=== PATIENT | female | born 2005 | race Caucasian/White ===

== ENCOUNTER 2024-04-07 18:01 | Emergency (ER) | payer BC, SELFPAY ==
[2024-04-07 18:10] VITALS: BP 119/67; PULSE 67; RESP 16; TEMP 36.8; O2SAT 98; BMI 25.6
[2024-04-07 18:59] LABS: PCR FLU A Negative PCR FLU A (Negative); PCR FLU B Negative PCR FLU B (Negative); PCR RSV Negative PCR RSV (Negative); SARS PCR* Negative SARS-CoV-2 (Negative)
[2024-04-07 19:33] LABS: Appearance Urine Clear (Clear); Bilirubin Urine Negative (Negative); Blood Urine Negative (Negative); Color Urine Yellow (Yellow); Glucose Urine Negative (Negative); Ketones Urine Negative (Negative); Leukocyte Esterase Urine Negative (Negative); Nitrite Urine Negative (Negative); Protein Urine Negative (Negative); Specific Gravity Urine 1.015 (1.000-1.030); Urobilinogen Urine 0.2 (0.2-1.0); pH Urine 6.5 (5.0-8.5)
--- NOTE | 2024-04-07 19:34 | ED.GENADULT ---
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 Her RSV COVID flu are negative. She has been having some body aches and fatigue but no chest pain shortness a breath cough sputum production dysuria abdominal pain rashes or stiff neck. She has otherwise been in her usual state of health. Related Data Home Medications ?Medication ?Instructions ?Recorded ?Confirmed norgestimate 0.25 mg-ethinyl 1 tab PO DAILY 04/07/24 04/07/24 estradiol 35 mcg tablet (Estarylla) Allergies Allergy/AdvReac Type Severity Reaction Status Date / Time No Known Drug Allergies Allergy Verified 04/07/24 18:09 Review of Systems Status of ROS: Reports: 10 or more systems reviewed and unremarkable except as noted in History and below Exam Narrative: Exam Narrative: EXAM GENERAL: Patient appears comfortable and well. EYES: No scleral icterus. ENT: Tympanic membranes and oropharynx normal. THYROID: no thyroid nodules or thyromegaly. LYMPH: No supraclavicular or cervical lymphadenopathy. SKIN: Visible skin seen during exam normal or with benign process only. EXT: No dependent lower extremity pedal edema. HEART: Regular rate and rhythm with no murmurs, rubs, or gallops. LUNGS: Clear to auscultation bilaterally with no crackles or wheezes. ABD: Soft, non tender, non distended. PSYCH: Good eye contact, speech is not pressured. Const: Vital Signs, click to edit/add: Vital Signs - 24 hr 04/07/24 18:10 Temperature 98.2 F Pulse Rate [Pulse Oximeter] 67 Respiratory Rate 16 Blood Pressure [Ri ght Upper Arm] 119/67 Pulse Oximetry 98 Oxygen Delivery Me thod Room Air Course Course ED Course: Patient seen and examined. Vital Signs Vital signs: Initial Vital Signs Temperature 98.2 F 04/07/24 18:10 Temperature Source Temporal Artery Scan 04/07/24 18:10 Pulse Rate 67 04/07/24 18:10 Respiratory Rate 16 04/07/24 18:10 Blood Pressure 119/67 04/07/24 18:10 Blood Pressure Mean 84 04/07/24 18:10 Blood Pressure Position Sitting 04/07/24 18:10 Pulse Oximetry 98 04/07/24 18:10 Oxygen Delivery Method Room Air 04/07/24 18:10 Vital Signs Temperature 98.2 F 04/07/24 18:10 Pulse Rate 67 04/07/24 18:10 Respiratory Rate 16 04/07/24 18:10 Blood Pressure 119/67 04/07/24 18:10 Pulse Oximetry 98 04/07/24 18:10 Oxygen Delivery Method Room Air 04/07/24 18:10 Temperature 98.2 F 04/07/24 18:10 Pulse Rate 67 04/07/24 18:10 Respiratory Rate 16 04/07/24 18:10 Blood Pressure 119/67 04/07/24 18:10 Pulse Oximetry 98 04/07/24 18:10 Oxygen Delivery Method Room Air 04/07/24 18:10 Medical Decision Making MDM Narrative Medical decision making narrative: Patient presents with body aches and fatigue. She has a normal exam and normal vital signs. She had negative COVID flu and RSV. I do not believe further workup is evaluated. I do think she is safe to discharge home with primary care follow-up with the diagnosis of viral syndrome. Lab Data Labs: Lab Results 04/07/24 Range/Units 18:17 SARS-CoV-2 (PCR) Negative SARS-CoV-2 (Negative) Influenza Type A (PCR) Negative PCR FLU A (Negative) Influenza Type B (PCR) Negative PCR FLU B (Negative) RSV (PCR) Negative PCR RSV (Negative) Discharge Plan Discharge Clinical Impression: Acute viral syndrome Patient Disposition: Home, Self-Care Condition: Stable Instructions: Viral Syndrome (ED) Additional Instructions: Tylenol 650 mg every 8 hours as needed Motrin 400 mg every 8 hours as needed Rest Fluids Follow-up with [facility] as needed. Activity Level: No Restrictions Discharge Diet: Regular Prescriptions: No Action norgestimate-ethinyl estradiol [Estarylla] 0.25-35 mg-mcg tablet 1 tab PO DAILY Stand Alone Forms: [employer] Info Instructions
--- OUTSIDE RECORDS SUMMARY | 2024-04-07 20:01 | XMS_ITS | Encounter Summary ---
Author Organization [facility] Address [address] [place] [address] Care Team Providers Care Nutrient Management Specialist Name Role Phone Pediatrics, [facility] Primary Care Provider [phone] [phone] Encounter Details Date Type Department Care Team (Late st Contact Info) Description 07/27/2021 Orders Only [facility] Endocrinology [place] [address] Kevin Posadas [address] [address] Rosalina Winslow NP Social History Tobacco Use Types Packs/Day Years Used Date Smoking Tobacco: Never Smokeless Tobacco: Never Comments No Sex and Gender Information Value Date Recorded Sex Assigned at Not on file Legal Sex Female 11:30 AM EDT Gender Identity Not on file Sexual Orientation Not on file documented as of this encounter Plan of Treatment Not on file documented as of this encounter Visit Diagnoses Not on filedocumented in this encounter Care Teams Nutrient Management Specialist Relationship Specialty Start Date End Date Pediatrics, [address] [place] [address] PCP - General Pediatrics 02/17/17 documented as of this encounter
--- OUTSIDE RECORDS SUMMARY | 2024-04-07 20:01 | XMS_ITS | Referral Summary ---
Author Organization [facility] Address [address] [place] [address] Care Team Providers Care Slackline Operator Name Role Phone Pediatrics, [facility] Primary Care Provider [phone] [phone] Allergies No known active allergies Medications MULTIVITAMIN WITH IRON ORAL Take 1 tablet by mouth once daily 06/22/2013 Active dapsone 7.5 % GlwP 02/03/2021 Active norgestimate-eth inyl estradioL (SPRINTEC 0.25/35, 28,) 0.25-35 mg-mcg tabletIndication s:Hirsutism,Abno rmal weight gain Take 1 tablet by mouth once daily 28 tablet 11 12/21/2022 Active Active Problems Problem Noted Date Diagnosed Date 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/17/2017 Foot pain, bilateral 02/17/2017 Immunizations Name Administration Dates Next Due Influenza IIV4, IM PF (6 mo+ ) (FLULAVAL/FLUZONE/FLUARIX QUAD) 01/14/2022 Social History Tobacco Use Types Packs/Day Years Used Date Smoking Tobacco: Never Smokeless Tobacco: Never Tobacco Cessation:Counseling Given: Yes Comments Unknown Sex and Gender Information Value Date Recorded Sex Assigned at Not on file Legal Sex Female 11:30 AM EDT Gender Identity Not on file Sexual Orientation Not on file Last Filed Vital Signs Vital Sign Reading Time Taken Comments Blood Pressure 115/71 12/21/2022 9:55 AM EDT Pulse 66 12/21/2022 9:55 AM EDT Temperature 36.8 C (98.2 F) 12/21/2022 9:55 AM EDT Respiratory Rate 16 12/21/2022 9:55 AM EDT Oxygen Saturation 100% 04/13/2021 3:16 PM EST Inhaled Oxygen Concentration - - Weight 64.5 kg (142 lb 3.2 oz) 12/21/2022 9:55 A M EDT Height 161.9 cm (5' 3.74) 12/21/2022 9:55 AM ED T Body Mass Index 24.61 12/21/2022 9:55 AM EDT Body Mass Index Percentile 80.09% 12/21/2022 9:5 5 AM EDT Growth Chart: CDC (Girls, 2- 20 Years) Plan of Treatment Not on file Care Teams Slackline Operator Relationship Specialty Start Date End Date Pediatrics, [facility] [address] [place] [address] PCP - General Pediatrics 02/17/17
--- OUTSIDE RECORDS SUMMARY | 2024-04-07 20:01 | XMS_ITS | Clinical Summary ---
Author Organization [facility] Address [address] [place] [address] Care Team Providers Care Door Closer Name Role Phone PediatricYonny Primary Care Provider [phone]- [phone] Source Comments In the event that these patient records contain information protected by 42 CFRpart 2 (i.e., would identify the patient as a substance abuser and was obtainedby a federally assisted substance abuse program to diagnose, refer fortreatment or treat the patient for substance abuse), please be advised of thefollowing: This information has been disclosed to you from records protected by Federalconfidentiality rules (42 CFR part 2). The Federal rules prohibit you frommaking any further disclosure of this information unless further disclosure isexpressly permitted by the written consent of the person to whom it pertains oras otherwise permitted by 42 CFR part 2. A general authorization for therelea se of medical or other information is NOT sufficient for this purpose.The Federal rules restrict any use of the information to criminally investigateor prosecute any alcohol or drug abuse patient. expressly permitted by the written consent of the person to whom it pertains or as otherwise permitted by 42 CFR part 2. A general authorization for the release of medical or other information is NOT sufficient for this purpose. The Federal rules restrict any use of the information to criminally investigate or prosecute any alcohol or drug abuse patient.[facility] Allergies No known active allergies Medications MULTIVITAMIN WITH IRON ORAL 06/22/2013 Acti ve ESTARYLLA 0.25-35 mg-mcg per tablet Take 1 tablet by mouth daily. 09/28/2022 Active Active Problems No known active problems Immunizations Immunization Administration Dates Next Due COVID-19 VACC,MRNA,(PFIZER)(PF) 08/22/2020,08/01 Social History Tobacco Use Types Packs/Day Years Used Date Smoking Tobacco: Never Smokeless Tobacco: Never Tobacco Cessation:Counseling Given: Not Answered Substance Use Answer Date Recorded In the past year, how often have you used prescription drugs for non-medical reasons? Not on file 01/29/2024 In the past year, how often have you used illega l drugs? Not on file 01/29/2024 In the past year, have you u sed any substance for non-medical reasons? No 01/29/2024 Comments No Sex and Gender Information Value Date Recorded Sex Assigned at Not on file Legal Sex Female 6:42 PM EDT Gender Identity Not on file Sexual Orientation Not on file Last Filed Vital Signs Vital Sign Reading Time Taken Comments Blood Pressure 112/61 11/24/2022 8:21 AM EDT Pulse 104 11/24/2022 8:21 AM EDT Temperature 37.2 C (98.9 F) 11/24/2022 8:21 AM EDT Respiratory Rate 18 11/24/2022 8:21 AM EDT Oxygen Saturation 99% 11/24/2022 8:21 AM EDT Inhaled Oxygen Concentration - - Weight 64.8 kg (142 lb 13.7 oz) 11/24/2022 8:21 AM EDT Height 157.5 cm (5' 2) 05/01/2019 8:36 AM EST Body Mass Index - - Plan of Treatment Health Maintenance Due Date Last Done Comments Chlamydia Screening 12/28/2019 Gonorrhea Screening 12/28/2019 HPV Vaccines (1 - 3-dose series) 12/28/2019 Hepatitis C Screen 2022 COVID-19 Vaccine ( season) 2023 08/22/2020, 08/01/2020 Influenza Vaccine (#1) 2023 3, 01/14/2022, 12/19/2020, Additional history exists DTaP/Tdap/Td Vaccines (1 - Tdap) 12/28/2023 Pneumococcal Vaccine 0-49 Aged Out No longer eligible based on patient's age to complete this topic Insurance [place] Care Teams Door Closer Relationship Specialty Start Date End Date Pediatric, [facility] [address] [place] [id number] PCP - General Pediatrics 01/27/16
--- OUTSIDE RECORDS SUMMARY | 2024-04-07 20:01 | XMS_ITS | Clinical Summary ---
Author Organization [facility] Address [address] [place] [address] Care Team Providers Care Job Press Operator Name Role Phone Pediatrics, [facility] Primary Care Provider [phone] [phone] Allergies No known active allergies Medications MULTIVITAMIN [...] PF (6 mo+ ) (FLULAVAL/FLUZONE/FLUARIX QUAD) 01/14/2022 Family History Medical History Relation Comments Cancer Maternal Grandmother Cancer Paternal Grandmother Relation Status Comments Maternal Grandmother Paternal Grandmother Social History Tobacco Use Types Packs/Day Years [...] 12/21/2022 9:5 5 AM EDT Growth Chart: [facility] (Girls, 2- 20 Years) Plan of Treatment Health Maintenance Due Date Last Done Comments Chlamydia Screen 2004 HIV Screen 2004 Hepatitis C Screen 2004 Lipid Panel 2004 Annual Visit/Physical/Well Child Check 10/28/2007 Depression Screening 12/28/2015 Varicella Vaccines (1 of 2 - 13+ 2-dose series) 2017 HPV Vaccines (1 - 3-dose series) 12/28/2019 Adult Tetanus (Td And Tdap) 2022 COVID-19 Vaccine ( - 2023- season) 2023 08/22/2020, 08/01/2020 Influenza Vaccine (#1) 2023 3, 01/14/2022, 12/19/2020, Additional history exists Hepatitis A Vaccines Aged Out No long er eligible based on patient's age to complete this topic Hib Vaccines Aged Out No longer eligi ble based on patient's age to complete this topic Meningococcal ACWY Vaccine Aged Out N o longer eligible based on patient's age to complete this topic Pneumococcal Vaccine Aged Out No long er eligible based on patient's age to complete this topic Care Teams Job Press Operator Relationship Specialty Start Date End Date Pediatrics, [facility] [address] [place] [address] PCP - General Pediatrics 02/17/17
--- OUTSIDE RECORDS SUMMARY | 2024-04-07 20:02 | XMS_ITS | Encounter Summary ---
Author Organization [facility] Address [address] [place] [address] Care Team Providers Care Drill Press Tender Name Role Phone Pediatrics, [facility] Primary Care Provider [phone] [phone] Reason for Referral * Consultation (Routine) - Closed Specialty Diagnoses / Procedures Referred By Luke cui Referred To Contact Orthopedic Surgery / Orthopaedics Diagnoses Foot pain, bilateral Congenital pes planovalgus Ivana Blackwell MD [address] [place] [address] [place] [address] Phone: tel: fax: Branden Christopher MD [address] [place] [address] Phone: tel:[phone] fax:[phone] Referral ID Status Reason Start Date Expiration Date Visits Re quested Visits Authorized [id number] Closed 03/23/2020 03/23/2021 1 1 Scheduling Instructions requesting Encounter Details Date Type Department Care Team (Late st Contact Info) Description 03/23/2020 Community Orders [facility] [address] [place] [address] Ivana Blackwell MD [address] [place] [address] [place] [address] Foot pain, bilateral (Primary Dx); Congenital pes planovalgus Social History Tobacco Use Types Packs/Day Years Used Date Smoking Tobacco: Never Assessed Comments No Sex and Gender Information Value Date Recorded Sex Assigned at Not on file Legal Sex Female 11:30 AM EDT Gender Identity Not on file Sexual Orientation Not on file documented as of this encounter Plan of Treatment Scheduled Referrals Name Type Priority Associated Diagnoses Orde r Schedule Ambulatory Referral to Orthopedic Surgery Outpatient Referral Routine Foot pain, bilateral Congenital pes planovalgus Ordered: 03/23/2020 documented as of this encounter Visit Diagnoses Diagnosis Foot pain, bilateral- Primary Congenital pes planovalgus documented in this encounter Care Teams Drill Press Tender Relationship Specialty Start Date End Date Pediatrics, [facility] [address] [place], [place] [address]tone [facility] [place] [address] PCP - General Pediatrics 02/17/17 documented as of this encounter
--- OUTSIDE RECORDS SUMMARY | 2024-04-07 20:02 | XMS_ITS | Encounter Summary ---
Author Organization [facility] Address [address] [place] [address] Care Team Providers Care Bulldozer Press Operator [facility] [phone] Reason for Referral * Consultation (Routine) - Closed Specialty Diagnoses / Procedures Referred By Contact Referred To Contact Pediatric Endocrinology Diagnoses PCOS (polycystic ovarian syndrome) Nicole Nj MD [address] [place] [address] [place] [address] Phone: tel: fax: Referral ID Status Reason Start Date Expiration Date Visits Re quested Visits Authorized [id number] Closed 12/23/2020 12/23/2021 1 1 Scheduling Instructions please schedule with a female that specializes in PCOS Comments Please schedule with a female that specializes in PCOS Encounter Details Date Type Department Care Team (Late st Contact Info) Description 12/23/2020 Community Orders [facility] [address] [place] [address] Nicole Nj MD [address] [place] [address] Pediatric and Adolescent [place] [phone] PCOS (polycystic ovarian syndrome) (Primary Dx) Social History Tobacco Use Types Packs/Day Years Used Date Smoking Tobacco: Never Assessed Comments No Sex and Gender Information Value Date Recorded Sex Assigned at Not on file Legal Sex Female 11:30 AM EDT Gender Identity Not on file Sexual Orientation Not on file documented as of this encounter Plan of Treatment Scheduled Referrals Name Type Priority Associated Diagnoses Order Schedule Ambulatory Referral to Pediatric Endocrinology Outpatient Referral Routine PCOS (polycystic ovarian syndrome) Ordered: 12/23/2020 documented as of this encounter Visit Diagnoses Diagnosis PCOS (polycystic ovarian syndrome)- Primary Polycystic ovaries documented in this encounter Care Teams Bulldozer Press Operator Relationship Specialty Start Date End Date Pediatrics, Yonny [address] [place], [place] [address] [place] [address] PCP - General Pediatrics 02/17/17 documented as of this encounter
--- OUTSIDE RECORDS SUMMARY | 2024-04-07 20:02 | XMS_ITS | Encounter Summary ---
Author Organization [facility] Address [address] [place] [address] Care Team Providers Care Director State Pharmacy Name Role Phone [facility] Provider [phone] Encounter Details Date Type Department Care Team (Late st Contact Info) Description 01/21/2021 Orders Only [facility] Endocrinology [address] [place] [address] Rosalina Winslow NP Hirsutism (Primary Dx); Abnormal weight gain Social History Tobacco Use Types Packs/Day Years Used Date Smoking Tobacco: Never Assessed Comments No Sex and Gender Information Value Date Recorded Sex Assigned at Not on file Legal Sex Female 11:30 AM EDT Gender Identity Not on file Sexual Orientation Not on file COVID-19 Exposure Response Date Recorded In the last month, have you been in contact with someone who was confirmed or suspected to have Coronavirus / COVID-19? No / Unsure 01/08/2021 8:07 AM EDT documented as of this encounter Plan of Treatment Scheduled Orders Name Type Priority Associated Diagnoses Orde r Schedule [facility] ESOTERIX Lab Routine Hirsutism Abnormal weight gain Expected: 01/22/2021 (Approximate), Expires: 01/21/2022 Luteinizing Hormone Esoterix Lab Routine Hirsutism Abnormal weight gain Expected: 01/22/2021 (Approximate), Expires: 01/21/2022 Testosterone-Peds(Free, Tot, [facility]) Lab Routine Hirsutism Abnormal weight gain Expected: 01/22/2021 (Approximate), Expires: 01/21/2022 documented as of this encounter Procedures Procedure Name Priority Date/Time Associated Diagnosis Comments TESTOSTERONE, FREE+TOTAL LC/MS - [facility] Routine 02/05/2021 3:52 PM EST Hirsutism Abnormal weight gain FSH AND LH - [facility] Routine 02/05/2021 3:52 PM EST Hirsutism Abnormal weight gain documented in this encounter Results * Testosterone, Free+Total LC/MS - [facility] (02/05/2021 3:52 PM EST) Testosterone, Total, LC/MS - [facility] 23.6 ng/dL [facility] Comment: Derrell Stage Age (years) Female 1 <9.2 <2.5 - 10.0 2 9.2 - 13.7 7.0 - 28.0 3 10.0 - 14.4 15.0 - 35.0 4 10.7 - 15.6 13.0 - 32.0 5 11.8 - 18.6 20.0 - 38.0 Adult Females = or >18 10.0 - 55.0 Testosterone, Free - [facility] 3.6 Not Estab. pg/mL [facility] Blood 02/05/2021 3:52 PM EST 02/05/2021 Narrative [facility] - 02/09/2021 5:36 AM EST Test(s) [id number], Total, LC/MS was developed and its performance characteristics determined by [facility]. It has not been cleared or approved by the Food and Drug Administration. Performed at: 01 - [facility] [address] [id number] Cardiology Physician Assistant: Rangel Arguelles MD, Phone: [phone] us Rosalina Winslow NP LAB BLOOD ORDERABLES Fin al Result [facility] * FSH and LH - [facility] (02/05/2021 3:52 PM EST) LH - [facility] 9.9 mIU/mL [facility] Comment: <24 hours <0.2 - 1.0 1 day <0.2 - 0.8 2 days <0.2 - 0.6 3 days <0.2 - 2.7 4 days <0.2 - 1.7 5 days <0.2 - 3.1 6 days 0.4 - 6.4 7 days <0.2 - 5.6 8 - 30 days <0.2 - 7.8 1 - 12 month <0.2 - 0.4 1 - 4 years <0.2 - 0.5 5 - 9 years <0.2 - 3.1 10 - 12 years <0.2 - 11.9 13 - 16 years 0.5 - 41.7 Adult Female: Follicular phase 2.4 - 12.6 Ovulation phase 14.0 - 95.6 Luteal phase 1.0 - 11.4 FSH - [facility] 5.0 mIU/mL [facility] Comment: <24 hours <0.2 - 0.8 1 day <0.2 - 0.8 2 days <0.2 - 0.8 3 days <0.2 - 2.4 4 days <0.2 - 2.3 5 days <0.2 - 3.4 6 days <0.2 - 4.5 7 days <0.2 - 21.4 8 - 30 days <0.2 - 22.2 1 - 12 months Not Estab. 1 - 4 years 0.2 - 11.1 5 - 9 years 0.3 - 11.1 10 - 12 years 2.1 - 11.1 13 - 16 years 1.6 - 17.0 Adult Female: Follicular phase 3.5 - 12.5 Ovulation phase 4.7 - 21.5 Luteal phase 1.7 - 7.7 Blood 02/05/2021 3:52 PM EST 02/05/2021 Narrative [facility] - 02/09/2021 5:36 AM EST Performed at: - [facility] [address] [id number] Cardiology Physician Assistant: Rangel Arguelles MD, Phone: [phone] us Rosalina Winslow NP LAB BLOOD ORDERABLES Fin al Result [facility] documented in this encounter Visit Diagnoses Diagnosis Hirsutism- Primary Abnormal weight gain documented in this encounter Care Teams Director State Pharmacy Relationship Specialty Start Date End Date Pediatrics, [facility] [place] [address] PCP - General Pediatrics 02/17/17 documented as of this encounter
== END 2024-04-07 20:00 | disposition home or self-care (01) ==
LOC: ED 19:59
PROVIDERS: Emergency Provider Internal Medicine
DX: B34.9 Viral infection, unspecified (principal)
CPT/HCPCS: 81003; 87631; 99283

== ENCOUNTER 2024-04-11 15:47 | Outpatient (CLI) | payer BC, SELFPAY | END 2024-04-11 15:48 | disposition home or self-care (01) | LOC: NFLDREF 15:50 | PROVIDERS: Visit Provider Internal Medicine | DX: B34.9 Viral infection, unspecified (principal) | CPT/HCPCS: 80048 ==